=== PATIENT | female | born 1940 | race Caucasian/White ===

== ENCOUNTER 2017-12-06 11:09 | Emergency (ER) | payer OTHER ==
[~2017-12-06] VITALS: Ht 160 cm; Wt 40.8 kg
[~2017-12-06 11:09] MED LIST: AMANTADINE100 M1; CARBIDOPA-LEVO1 EAC4; LEVOXYL137 MCG; RYTARY ER 23.71 EACH
[2017-12-06] MEDS ORDERED: DICLOFENAC SODI50 MG PO ×2 (13:49→14:04)
== END 2017-12-06 14:17 | disposition home or self-care (01) ==
LOC: ER 11:09
DX: G89.11 Acute pain due to trauma (principal); M54.5 Low back pain; M53.3 Sacrococcygeal disorders, not elsewhere classified

== ENCOUNTER 2018-09-07 15:22 | Emergency (ER) | payer OTHER ==
[~2018-09-07] VITALS: Ht 152.4 cm; Wt 38.6 kg
[~2018-09-07 15:22] MED LIST changes: +DICLOFENAC SODI50 MG PO
[2018-09-07] MEDS ORDERED: COZAAR25 MG (15:31)
== END 2018-09-07 20:03 | disposition home or self-care (01) ==
LOC: ER 15:22
DX: B96.0 Mycoplasma pneumoniae [M. pneumoniae] as the cause of diseases classified elsewhere (principal); R06.02 Shortness of breath